=== PATIENT | female | born 1995 | race Hispanic/Latino ===

== ENCOUNTER 2022-07-14 15:45 | Emergency (ER) | payer SELFPAY ==
--- OUTSIDE RECORDS SUMMARY | 2022-07-14 15:49 | XMS REPORT | Continuity of Care Document ---
:1995 Author Organization [facility] t Address [address] [place] [address] Care Team Providers Name Role Phone Pcp, Patient Does Not Have A Primary Care Physician +[id number] Rachel Patel MD Attending Clinician Michelle Weeks Attending Clinician MICHELLE MCKEON Attending Clinician Unavailable Doctor Unassigned, [place] Attending Clinician Unavailable Problems Condition Condition Condition Status Onset Resolution Last Treating Co mments Source Name Details Category Date Date Treatment Clinician Date No known No known Disease Unive rs active active ity of problems problems [facility] Allergies, Adverse Reactions, Alerts Allergy Allergy Status Severity Reaction(s) Onset Inactive Treating Comm ents Source Name Type Date Date Clinician NO KNOWN Drug Active Univers ALLERGIE Class ity of S [facility] Social History Social Habit Start Date Stop Date Quantity Comments Source Exposure to Not sure [facility] SARS-CoV-2 (event) Medica l Branch Tobacco use and 2021-07-18 2021-07-18 Never used [facility] exposure 00:00:00 00:00:00 [facility] Sex Ass[birth year] [facility] 00:00:00 00:00:00 [facility] Smoking Status Start Date Stop Date Source Unknown if ever smoked [facility] Current every day smoker 2021-07-18 00:00:00 Uni versity [facility] Medications Ordered Filled Start Stop Current Ordering Indication Dosage Frequency Signature Comments Components Source Medication Medication Date Date Medication? Clinician (SIG) Name Name No known No Univers medications 07-18 ity of 16:52: [place] [facility] Branch Immunizations Ordered Filled Immunization Date Status Comments Sour e Immunization Name Name TDAP 2021-07-18 Completed [facility] 00:00:00 [facility] Vital Signs Vital Name Observation Time Observation Value Comments Source Systolic blood 2021-07-18 21:29:00 120 mm[Hg] Univer sity of pressure [facility] Diastolic blood 2021-07-18 21:29:00 77 mm[Hg] Unive rsity of [facility] Heart rate 2021-07-18 21:29:00 91 /min [facility] Body temperature 2021-07-18 21:29:00 36.94 Magalys [facility] Res[facility] rate 2021-07-18 21:29:00 17 /min [facility] Body height 2021-07-18 21:29:00 167.6 cm [facility] Body weight 2021-07-18 21:29:00 99.791 kg [facility] BMI 2021-07-18 21:29:00 35.51 kg/m2 [facility] Oxygen saturation in 2021-07-18 21:29:00 96 /min [facility] Arterial blood by [facility] Pulse oximetry Branch Procedures Procedure Date / Time Performing Clinician Source Performed TDAP VACCINE, >11 YRS, IM 2021-07-18 21:37:32 [facility] SHOW OR MISSED 2021-07-18 21:22:26 Doctor Unassigned, [facility] APPOINTMENT POLICY [place] [facility] ACKNOWLEDGEMENT CONSENT/REFUSAL FOR 2021-07-18 21:22:12 Doctor Unassigned, [facility] DIAGNOSIS AND TREATMENT [facility] [place] Encounters Start End Encounter Admission Attending Care Care Encounter Source Date/Time Date/Time Type Type Clinicians Facility Department ID 2021-07-18 2021-07-18 Urgent Rachel Patel [facility] [id number] [facility] 16:23:33 16:43:33 [id number] [facility] [id number] Jerald as Og?Blea [id number] [facility] [address] 2021-07-18 2021-07-18 Outpatient R MIKE [facility] [id number] [facility] 16:20:00 16:20:00 MICHELLE doe f [facility] 2021-07-18 2021-07-18 Orders Doctor MAEVE [id number] Univers 00:00:00 00:00:00 Only Unassigned, MILO [id number] eduardo of [place] [facility] [id number] [facility] as [id number] [place] [address] Branch Results This patient has no known results.
[2022-07-14 18:42] LABS: Absolute Lymphocytes (CBC) 3.5 K/uL (0.7-4.9); Hematocrit 44.6 % (36.0-45.0); Lymphocytes % 29.6 % (15.3-44.8); MCV 86.7 fL (80-100); MPV 8.8 fL (7.6-11.3); RBC Red Blood Cell Count 5.14 M/uL (3.86-4.86)
--- NOTE | 2022-07-14 18:55 | RAD REPORT ---
[facility] DES[facility]: [facility] - 07[facility]14/2022 6:40 pm CLINICAL HISTORY: right mid back/flank pain COMPARISON: No comparisons TECHNIQUE: CT of the abdomen and pelvis was performed without contrast. All CT scans are performed using dose optimization technique as appropriate and may include automated exposure control or mA/KV adjustment according to patient size. FINDINGS: Lower chest: No acute abnormality. Liver: No acute abnormality or suspicious lesions. Biliary: No biliary ductal dilatation. Stomach: No significant focal abnormality. Duodenum: No significant focal abnormality. Pancreas: No significant abnormality. Spleen: No significant abnormality. Adrenal: No suspicious lesions. Kidney/ureter: No hydronephrosis. No renal calculi. Retroperitoneum: No retroperitoneal adenopathy. Vascular: No aneurysm. Bowel: No significant focal abnormality. Peritoneum: No ascites or free air. Bladder: Grossly unremarkable. Reproductive: No adnexal masses. Bones: No acute fracture. Other: n/a IMPRESSION: No acute intra-abdominal or pelvic finding. Normal appendix. No urinary tract calculi.
[2022-07-14 19:07] LABS: Albumin 4.1 g/dL (3.4-5.0); Bilirubin Total 0.4 mg/dL (0.2-1.0); Potassium 3.9 mmol/L (3.5-5.1); Protein, Total 8.4 g/dL (6.4-8.2)
[2022-07-14] MEDS ORDERED: NA CHLORIDE 0.9% 1,000 ML ONE (19:19)
[2022-07-14] MEDS ORDERED: KETOROLAC 30 MG/ML INJ ONE (19:19)
--- NOTE | 2022-07-14 20:38 | RAD REPORT ---
EXAM DESCRIPTION: US - Abdomen Exam Limited - 07/14/2022 8:30 pm CLINICAL HISTORY: right mid back pain COMPARISON: <Comparisons> FINDINGS: The gallbladder demonstrates no gallstones. No pericholecystic fluid or gallbladder wall t hickening. The common bile duct is normal measuring 4 mm. The liver demonstrates no findings of intrahepatic biliary dilatation. IMPRESSION: Unremarkable examination. Negative for cholelithiasis or acute cholecystitis.
[2022-07-14 20:53] LABS: Urine Blood 3+ (Negative); Urine Glucose Negative (Negative); Urine Protein Negative (Negative)
[2022-07-14] MEDS ORDERED: LIDOCAINE 4% PATCH ONE (20:55)
[2022-07-14] MEDS ORDERED: MORPHINE 4 MG/ML SYR ONE ×2 (20:55→21:51)
--- NOTE | 2022-07-14 21:02 | ER ---
Nurse's Notes [facility] Name: Elisa Gonzáles Age: 27 yrs Sex: Female : 1995 Arrival Date: 07/14/2022 Time: 15:48 Bed 10 Private MD: Diagnosis: Low back pain Presentation: 07/14 16:05 Chief complaint: Patient states: back pain that started 1 hr ago and can not move now. kr3 the pain is only there when I move. Coronavirus screen: Vaccine status: Patient reports being unvaccinated. Client denies travel out of the [place] in the last 14 days. Ebola Screen: Patient denies travel to an Ebola-affected area in the 21 days before illness onset. Initial Sepsis Screen: Does the patient meet any 2 criteria? No. Patient's initial sepsis screen is negative. Does the patient have a suspected source of infection? No. Patient's initial sepsis screen is negative. Risk Assessment: Do you want to hurt yourself or someone else? Patient reports no desire to harm self or others. Onset of symptoms was July 14, 2022. 16:05 Method Of Arrival: Wheelchair kr3 16:05 Acuity: KEITH 4 kr3 18:07 Acuity: KEITH 3 iw Triage Assessment: 16:09 General: Appears in no apparent distress. uncomfortable, Behavior is calm, cooperative, kr3 appropriate for age. Pain: Complains of pain in right low back Pain currently is 0 out of 10 on a pain scale. at worst was 9 out of 10 on a pain scale. Musculoskeletal:. Historical: - Allergies: 16:08 No Known Allergies; kr3 - Home Meds: 19:17 None [Active]; iw - PMHx: 19:17 None; iw - Immunization history:: Adult Immunizations not up to date. - Social history:: Smoking status: Patient reports the use of cigarette tobacco products, denies chronic smoking, but will smoke occasionally, Reported history of juuling and/or vaping. Screenin:16 Abuse screen: Denies threats or abuse. Denies injuries from another. Nutritional iw screening: No deficits noted. Tuberculosis screening: No symptoms or risk factors identified. Fall Risk IV access (20 points). Assessment: 18:20 General: Appears in no apparent distress. Behavior is calm, cooperative. Pain: iw Complains of pain in right low back. Neuro: Level of Consciousness is awake, alert, obeys commands, Oriented to person, place, time, situation, Moves all extremities. Full function. Cardiovascular: Patient's skin is warm and dry. Respiratory: Respiratory effort is even, unlabored, Respiratory pattern is regular. GI: Reports lower abdominal pain, upper abdominal pain, nausea. : Reports pain in right in lower back. Derm: Skin is intact, is healthy with good turgor. Musculoskeletal: Range of motion: intact in all extremities. 19:16 Reassessment: Patient appears in no apparent distress at this time. Patient and/or iw family updated on plan of care and expected duration. Pain level reassessed. Patient is alert, oriented x 3, equal unlabored respirations, skin warm/dry/pink. Vital Signs: 16:05 BP 116 / 78; Pulse 78; Resp 20; Temp 98.4(O); Pulse Ox 98% on R/A; Weight 104.33 kg; kr3 Height 5 ft. 5 in. (165.10 cm); Pain 9/10; 22:00 BP 120 / 65; Pulse 59; Resp 20; Pulse Ox 100% ; vc1 16:05 Body Mass Index 38.27 (104.33 kg, 165.10 cm) kr3 ED Course: 15:48 Patient arrived in ED. mr 16:08 Triage completed. kr3 16:12 Arm band placed on right wrist. kr3 16:21 Maulik Humphries PA is PHCP. cp 16:21 Дмитрий Phoenix MD is Attending Physician. cp 17:23 Nae Heredia, DOMONIQUE is Primary Nurse. iw 18:26 Initial lab(s) drawn. Inserted saline lock: 20 gauge in left antecubital area, using iw aseptic technique. Blood collected. 18:42 CT Stone Protocol In Process Unspecified. EDMS 20:31 US Abdomen Limited: gallbladder In Process Unspecified. EDMS 22:24 No provider procedures requiring assistance completed. IV discontinued, intact, vc1 bleeding controlled, No redness/swelling at site. Pressure dressing applied. Administered Medications: 19:15 Drug: NS 0.9% 1000 ml Route: IV; Rate: 1 bolus; Site: right antecubital; iw 20:15 Follow up: IV Status: Completed infusion iw 19:15 Drug: Ketorolac 30 mg Route: IVP; Site: right antecubital; iw 19:30 Follow up: Response: No adverse reaction iw 20:52 Drug: Lidoderm Patch 5 % (700 mg/patch) 1 patches Route: Topical; Site: affected area; vc1 20:52 Drug: morphine 4 mg Route: IVP; Infused Over: 4 mins; Site: left antecubital; vc1 21:10 Follow up: Response: No adverse reaction; Pain is decreased iw 21:47 Drug: morphine 4 mg Route: IVP; Infused Over: 4 mins; Site: left antecubital; vc1 22:00 Follow up: Response: No adverse reaction iw 21:47 Drug: Decadron - Dexamethasone 10 mg Route: IVP; Site: left antecubital; vc1 22:05 Follow up: Response: No adverse reaction iw Medication: 22:25 VIS not applicable for this client. vc1 Outcome: 21:01 Discharge ordered by . cp 22:24 Discharged to home ambulatory, with family. vc1 22:24 Condition: good 22:24 Discharge instructions given to patient, Instructed on discharge instructions, follow up and referral plans. medication usage, Demonstrated understanding of instructions, follow-up care, medications, Prescriptions given X 3. 22:25 Patient left the ED. vc1 Signatures: Dispatcher [employer] OVIDIOCT JohnJanet Nae Heredia RN DOMONIQUE iw Maulik Humphries PA PA cp Calcote, Vanessa, RN RN vc1 Carmela Joshi RN RN kr3 Corrections: (The following items were deleted from the chart) 16:12 16:05 Chief complaint: Patient states: back pain that started 1 hr ago and can not move kr3 now kr3
--- NOTE | 2022-07-14 21:02 | EDPHYS ---
Physician Documentation [facility] Name: Elisa Gonzáles Age: 27 yrs Sex: Female : 1995 Arrival Date: 07/14/2022 Time: 15:48 Bed 10 Private MD: ED Physician Дмитрий Phoenix HPI: 07/14 18:00 This 27 yrs old Female presents to ER via Wheelchair with complaints of Back cp Pain. 18:00 The patient presents with pain that is acute, with no known mechanism of injury. The cp symptoms are located in the right mid back. 18:00 Onset: The symptoms/episode began/occurred suddenly, today. cp 18:00 The pain does not radiate. Associated signs and symptoms: Pertinent negatives: cp abdominal pain, constipation, dysuria, fever, headache, incontinence, numbness, weakness. The problem was sustained started while eating dinner about 1 hour prior to arrival. 18:00 Modifying factors: the patient symptoms are aggravated by any movement. cp 18:00 Severity of symptoms: in the emergency department the symptoms are unchanged, despite cp home interventions. Historical: - Allergies: 16:08 No Known Allergies; kr3 - Home Meds: 19:17 None [Active]; iw - PMHx: 19:17 None; iw - Immunization history:: Adult Immunizations not up to date. - Social history:: Smoking status: Patient reports the use of cigarette tobacco products, denies chronic smoking, but will smoke occasionally, Reported history of juuling and/or vaping. ROS: 18:05 Constitutional: Negative for body aches, chills, fever, poor PO intake. cp 18:05 Eyes: Negative for injury, pain, redness, and discharge. cp 18:05 Neck: Negative for pain with movement, pain at rest, stiffness. 18:05 Cardiovascular: Negative for chest pain, edema, palpitations. 18:05 Respiratory: Negative for cough, shortness of breath, wheezing. 18:05 Abdomen/GI: Negative for nausea, vomiting, and diarrhea, constipation, bowel incontinence. 18:05 Back: Positive for pain at rest, pain with movement, of the right low back, Negative for injury or acute deformity. 18:05 : Negative for urinary symptoms, bladder incontinence. 18:05 Neuro: Negative for altered mental status, dizziness, headache, numbness, tingling, weakness. 18:05 All other systems are negative. Exam: 18:10 Constitutional: The patient appears in no acute distress, alert, awake, non-toxic, well cp developed, well nourished, obese, in obvious pain, uncomfortable. 18:10 Head/Face: Normocephalic, atraumatic. cp 18:10 Eyes: Periorbital structures: appear normal, Conjunctiva: normal, no exudate, no injection, Sclera: no appreciated abnormality, Lids and lashes: appear normal, bilaterally. 18:10 ENT: External ear(s): are unremarkable, Nose: is normal, Mouth: Lips: moist, Oral mucosa: moist, Posterior pharynx: Airway: no evidence of obstruction, patent. 18:10 Neck: ROM/movement: is normal, is supple, without pain, no range of motions limitations, no nuchal rigidity. 18:10 Chest/axilla: Inspection: normal. 18:10 Cardiovascular: Rate: normal, Rhythm: regular, Edema: JVD: is not appreciated. 18:10 Respiratory: the patient does not display signs of respiratory distress, Respirations: normal, no use of accessory muscles, no retractions, labored breathing, is not present, Breath sounds: are clear throughout, no decreased breath sounds, no stridor, no wheezing. 18:10 Abdomen/GI: Inspection: abdomen appears normal, Bowel sounds: active, all quadrants, Palpation: abdomen is soft and non-tender, in all quadrants. 18:10 Back: pain, that is severe, of the right low back, ROM is painful, with all movement, Straight leg raises: of both lower extremities does not illicit pain. 18:10 Skin: cellulitis, is not appreciated, no rash present. 18:10 Neuro: Orientation: to person, place \T\ time. Mentation: is normal, Motor: moves all fours, strength is normal, Sensation: is normal, Deep tendon reflexes are 2+ (normal) in the right patellar, right Achilles, left patellar and left Achilles. Vital Signs: 16:05 BP 116 / 78; Pulse 78; Resp 20; Temp 98.4(O); Pulse Ox 98% on R/A; Weight 104.33 kg; kr3 Height 5 ft. 5 in. (165.10 cm); Pain 9/10; 22:00 BP 120 / 65; Pulse 59; Resp 20; Pulse Ox 100% ; vc1 16:05 Body Mass Index 38.27 (104.33 kg, 165.10 cm) kr3 MDM: 17:23 Patient medically screened. 21:01 Data reviewed: vital signs, nurses notes, lab test result(s), radiologic studies, CT cp scan, ultrasound. 21:01 Differential diagnosis: Basilar Pneumonia Cholelithiasis Pyelonephritis spinal injury, cp Ureterolithiasis. Counseling: I had a detailed discussion with the patient and/or guardian regarding: the historical points, exam findings, and any diagnostic results supporting the discharge/admit diagnosis, lab results, radiology results, the need for outpatient follow up, a family practitioner, to return to the emergency department if symptoms worsen or persist or if there are any questions or concerns that arise at home. Response to treatment: the patient's symptoms have markedly improved after treatment, and as a result, I will discharge patient. 07/14 18:06 Order name: CBC with Diff; Complete Time: 19:02 07/14 19:02 Interpretation: Normal except: RBC 5.14; WBC 11.70. 07/14 18:06 Order name: CMP; Complete Time: 19:15 07/14 18:06 Order name: Lipase; Complete Time: 19:15 07/14 20:54 Order name: Urine Dipstick-Ancillary; Complete Time: 21:00 EDMS 07/14 20:56 Order name: Urine --Ancillary (enter results) ds4 07/14 18:06 Order name: CT Stone Protocol; Complete Time: 19:02 07/14 19:02 Interpretation: Report reviewed. 07/14 19:15 Order name: US Abdomen Limited: gallbladder; Complete Time: 20:47 07/14 20:47 Interpretation: Report reviewed. 07/14 17:54 Order name: Urine Dipstick-Ancillary (obtain specimen); Complete Time: 20:53 07/14 17:54 Order name: Urine Test (obtain specimen); Complete Time: 20:52 07/14 18:06 Order name: IV Saline Lock; Complete Time: 18:22 07/14 18:06 Order name: Labs collected and sent; Complete Time: 18:22 Administered Medications: 19:15 Drug: NS 0.9% 1000 ml Route: IV; Rate: 1 bolus; Site: right antecubital; iw 20:15 Follow up: IV Status: Completed infusion iw 19:15 Drug: Ketorolac 30 mg Route: IVP; Site: right antecubital; iw 19:30 Follow up: Response: No adverse reaction iw 20:52 Drug: Lidoderm Patch 5 % (700 mg/patch) 1 patches Route: Topical; Site: affected area; vc1 20:52 Drug: morphine 4 mg Route: IVP; Infused Over: 4 mins; Site: left antecubital; vc1 21:10 Follow up: Response: No adverse reaction; Pain is decreased iw 21:47 Drug: morphine 4 mg Route: IVP; Infused Over: 4 mins; Site: left antecubital; vc1 22:00 Follow up: Response: No adverse reaction iw 21:47 Drug: Decadron - Dexamethasone 10 mg Route: IVP; Site: left antecubital; vc1 22:05 Follow up: Response: No adverse reaction iw Disposition Summary: 07/14/22 21:01 Discharge Ordered Location: Home cp Problem: new cp Symptoms: have improved cp Condition: Stable cp Diagnosis - Low back pain cp Followup: cp - With: Private Physician - When: 2 - 3 days - Reason: Recheck today's complaints Discharge Instructions: - Discharge Summary Sheet cp - Acute Back Pain, Adult cp - Heat Therapy cp - Back Exercises cp - Form - Excuse from Work, School, or Physical Activity cp Forms: - Medication Reconciliation Form cp - Thank You Letter cp - Antibiotic Education cp - Prescription Opioid Use cp - Work release form vc1 Prescriptions: - Lidoderm 5 % Topical adhesive patch,medicated - apply 1 patch by TOPICAL route once daily; 10 patch; Refills: 0, Product cp Selection Permitted - Diclofenac Sodium 75 mg Oral Tablet Sustained Release - take 1 tablet by ORAL route 2 times per day; 30 tablet; Refills: 0, Product cp Selection Permitted - orphenadrine citrate 100 mg Oral Tablet Sustained Release - take 1 tablet by ORAL route 2 times per day As needed; 20 tablet; Refills: 0, cp Product Selection Permitted Signatures: Dispatcher [employer] Nae Fisher RN RN iw Maulik Humphries PA PA cp Calcote, Vanessa, RN RN vc1 Carmela Joshi RN RN kr3 Corrections: (The following items were deleted from the chart) 09/17 20:10 07/14 18:00 The problem was sustained started while eating dinner, cp cp
[2022-07-14] MEDS ORDERED: dexAMETHasone 10 MG/ML VIAL ONE (21:51)
[2022-07-16 05:39] VITALS: TEMP 98.4
[2022-07-16 05:41] VITALS: BP 120/65; O2SAT 100
== END 2022-07-14 22:25 | disposition home or self-care (01) ==
LOC: ER 15:45
DX: M54.50 Low back pain, unspecified (principal); F17.210 Nicotine dependence, cigarettes, uncomplicated
CPT/HCPCS: 36415; 74176; 76377; 76705; 80053; 81003; 81025; 83690; 85025; 99284; J1100; J2001; J7030